=== PATIENT | male | born 1990 | race Caucasian/White ===

== ENCOUNTER 2022-03-18 05:33 | Emergency (ER) | payer SELFPAY ==
[2022-03-18] MEDS ORDERED: Ondansetron 4 MG/2 ML SDV IVPUSH ONE (05:59)
[2022-03-18] MEDS ORDERED: Sodium Chloride 0.9% 1,000 ML IV SCH (06:00)
[2022-03-18] MEDS ORDERED: Sodium Chloride 0.9% 1,000 ML IV ONE (07:27)
[2022-03-18] MEDS ORDERED: Potassium Chloride 10 MEQ in Premix Bag 1 BAG IV SCH (07:30)
[2022-03-18] MEDS ORDERED: Metoclopramide 10 MG/2 ML SDV IVPUSH ONE (08:40)
[2022-03-18] MEDS ORDERED: Lactated Ringers 1,000 ML IV ONE (08:40)
[2022-03-18] MEDS ORDERED: Iopamidol 612 MG/ML 100 ML Bottle IVPUSH ONE (08:41)
[2022-03-18] MEDS ORDERED: Sodium Chloride 0.9% 10 ML SDV FLUSH ONE (08:41)
[2022-03-18] MEDS ORDERED: Famotidine 20 MG/2 ML SDV IVPUSH ONE (08:50)
== END 2022-03-18 11:05 | disposition home or self-care (01) ==
LOC: JD.ED 05:33
DX: R10.84 Generalized abdominal pain (principal); E86.0 Dehydration; R11.2 Nausea with vomiting, unspecified; Z20.822 Contact with and (suspected) exposure to COVID-19
CPT/HCPCS: 36415; 74177; 80053; 83605; 83690; 83735; 85025; 85610; 85730; 87635; 96361; 96374; 96375; 99284; J2405; J2765; J3490; J7030; J7120; Q9967; U0002